=== PATIENT | male | born 1940 | race Caucasian/White ===

== ENCOUNTER → 2017-01-16 | Outpatient (CLI) | payer MEDICARE, BC | END | disposition home or self-care (01) | LOC: PCVCIMAG 08:48 | PROVIDERS: ATTEND Internal Medicine Cardiovascular Disease | DX: I65.23 Occlusion and stenosis of bilateral carotid arteries (principal); E78.5 Hyperlipidemia, unspecified; I10 Essential (primary) hypertension | CPT/HCPCS: 93005; 93880; G0463 ==

== ENCOUNTER → 2017-07-19 | Outpatient (CLI) | payer MEDICARE, BC ==
--- NOTE | 2017-07-19 17:15 | PCVCIMAG ---
APPROVED REPORT Exam: Stress Echocardiogram Indication: CAD , Hypertension, PAD, Hyperlipidemia Patient Location: Echo lab Stress Nurse: Angelina Deutsch RN Room #: 2 Ht: 5 ft 9 in HR: 61 bpm BP: 114/80 mmHg Rhythm: NSR Medical History Medical History: CAD non obstructive, PAD Cardiac Risk Factors: HTN, Hyperlipidemia Pretest Chest Pain Characteristics: none Exercise History: Physically active Procedure The patient underwent an Exercise Stress Test using the Ubaldo Protocol. Blood pressure, heart rate, and EKG were monitored. An Echocardiogram was performed by highway engineering technician in four stages in quad fashion. At peak stress, four selected images were obtained and placed side by side with resting images for comparison. Stress Test Details Stress Test: Exercise stress testing was performed using a Ubaldo protocol. HR Resting HR: 61 bpmMax Heart Rate (APMHR): 142 bpm Max HR Achieved: 137 bpmTarget HR (85% APMHR): 120 bpm % of APMHR: 96 Recovery HR: 76 bpm HR response to stress: Normal HR response to stress BP Resting BP: 114/80 mmHg Max BP: 156/78 mmHg Recovery BP: 120/78 mmHg ECG Resting ECG: Sinus Bradycardia Stress ECG: Sinus Rhythm ST Change: Non-ischemic Arrhythmia: Occasional PVCs Recovery ECG: Sinus Rhythm Recovery ST Change: Non-ischemic Recovery Arrhythmia: occasional PVCs Clinical Reason for Termination: Maximal effort Stress Symptoms: none Exercise duration: 7 min 17 sec Highest Stage Achieved: Stage 3: 3.4 mph at 14% grade. Exercise capacity: 10.1 METs Overall Exercise Capacity for Age: Average Angina Score: None Stress ECG Conclusion The patient exercised according to the Ubaldo Protocol for7:17 minutes, achieving a maximum work level of 10.1 METS. The resting heart rate of 61 bpm, toy to a maximal level of 137 bpm. This value represents 96% of the maximal, age-predicted heart rate. The resting blood pressure of 114/80 mmHg, toy to a maximum blood pressure of 156/78 mmHg. The exercise was stopped due to fatigue. Pre-Stress Echo The resting Echocardiogram showed normal left ventricular contractility with an estimated Ejection Fraction of about >55%. Normal wall motion in all segments on baseline images. Post-Stress Echo The stress Echocardiogram showed normal left ventricular contractility with an estimated Ejection Fraction of about 65-70%. Normal augmentation of wall motion in all segments on post stress images. Clinical No clinical or ECG evidence for ischemia. Conclusion Clinical Response: Non-ischemic Exercise Capacity: Average Stress ECG Response: Non-ischemic Stress Echo Images: Non-ischemic
== END | disposition home or self-care (01) ==
LOC: PCVCIMAG 13:32
PROVIDERS: ATTEND Internal Medicine Cardiovascular Disease
DX: I25.10 Atherosclerotic heart disease of native coronary artery without angina pectoris (principal); I10 Essential (primary) hypertension; E78.5 Hyperlipidemia, unspecified; I73.9 Peripheral vascular disease, unspecified
CPT/HCPCS: 93325; 93351

== ENCOUNTER → 2018-01-17 | Outpatient (CLI) | payer MEDICARE, BC | END | disposition home or self-care (01) | LOC: PCVCIMAG 10:04 | DX: I73.9 Peripheral vascular disease, unspecified (principal); I25.10 Atherosclerotic heart disease of native coronary artery without angina pectoris; I65.23 Occlusion and stenosis of bilateral carotid arteries; I70.1 Atherosclerosis of renal artery; R94.31 Abnormal electrocardiogram [ECG] [EKG]; Z87.891 Personal history of nicotine dependence; Z79.899 Other long term (current) drug therapy; Z79.82 Long term (current) use of aspirin | CPT/HCPCS: 80061; 93005; 93880; 93931; G0463 ==

== ENCOUNTER → 2018-09-24 | Outpatient (CLI) | payer MEDICARE, BC | END | disposition home or self-care (01) | LOC: PCVCCLINIC 13:30 | PROVIDERS: ATTEND Internal Medicine Cardiovascular Disease | DX: I25.10 Atherosclerotic heart disease of native coronary artery without angina pectoris (principal); R94.31 Abnormal electrocardiogram [ECG] [EKG]; I65.29 Occlusion and stenosis of unspecified carotid artery; I77.1 Stricture of artery; I70.1 Atherosclerosis of renal artery; I73.9 Peripheral vascular disease, unspecified; I10 Essential (primary) hypertension; E78.00 Pure hypercholesterolemia, unspecified; R00.1 Bradycardia, unspecified; F17.210 Nicotine dependence, cigarettes, uncomplicated; M10.9 Gout, unspecified; Z98.890 Other specified postprocedural states; Z91.048 Other nonmedicinal substance allergy status; Z72.89 Other problems related to lifestyle; Z79.82 Long term (current) use of aspirin | CPT/HCPCS: 36415; 80061; 93005; G0463 ==

== ENCOUNTER → 2019-03-24 | Outpatient (CLI) | payer MEDICARE, BC ==
--- NOTE | 2019-03-24 11:54 | PCVCIMAG ---
APPROVED REPORT Study performed: 03/24/2019 10:33:02 Exam: Stress Echocardiogram Indication: CAD , Hypertension, Hyperlipidemia Stress Nurse: Elizabeth Tan RN Ht: 5 ft 9 in HR: 59 bpm BP: 134/85 mmHg Rhythm: NSR Procedure The patient underwent an Exercise Stress Test using the Ubaldo Protocol. Blood pressure, heart rate, and EKG were monitored. An Echocardiogram was performed by case technician in four stages in quad fashion. At peak stress, four selected images were obtained and placed side by side with resting images for comparison. Stress Test Details Stress Test: Exercise stress testing was performed using a Ubaldo protocol. HR Resting HR: 59 bpmMax Heart Rate (APMHR): 140 bpm Max HR Achieved: 144 bpmTarget HR (85% APMHR): 119 bpm % of APMHR: 102 Recovery HR: 74 bpm HR response to stress: Normal HR response to stress BP Resting BP: 134/85 mmHg Max BP: 152/85 mmHg Recovery BP: 120/74 mmHg BP response to stress: Normal blood pressure response to stress. ECG Resting ECG: Sinus Rhythm Stress ECG: Sinus Rhythm Recovery ECG: Clear Clinical Reason for Termination: Maximal effort Exercise duration: 6 min 30 sec Highest Stage Achieved: Stage 3: 3.4 mph at 14% grade. Exercise capacity: 8.40 METs Overall Exercise Capacity for Age: Good Pre-Stress Echo The resting Echocardiogram showed nornormal left ventricular contractility with an estimated Ejection Fraction of about 55-60%. Post-Stress Echo The stress Echocardiogram showed normal left ventricular contractility with an estimated Ejection Fraction of about 60-65%. Conclusion Clinical Response: Non-ischemic Exercise Capacity: Superior Stress ECG Response: Non-ischemic Stress Echo Images: Non-ischemic Other Information Study Quality: Good
== END | disposition home or self-care (01) ==
LOC: PCVCIMAG 10:16
PROVIDERS: ATTEND Internal Medicine Cardiovascular Disease
DX: I25.10 Atherosclerotic heart disease of native coronary artery without angina pectoris (principal); I10 Essential (primary) hypertension; E78.5 Hyperlipidemia, unspecified
CPT/HCPCS: 93325; 93351

== ENCOUNTER → 2019-07-31 | Outpatient (CLI) | payer MEDICARE, BC ==
--- NOTE | 2019-07-31 10:12 | PCVCIMAG ---
APPROVED REPORT Laterality: Bilateral Indications Stenosis Doppler Spectral Velocity Analysis PSV / EDVPSV / EDV ECA (R) 93 / 12 cm/sECA (L) 67 / 7 cm/s dICA (R) 54 / 21 cm/sdICA (L) 89 / 24 cm/s Surinder (R) 62 / 26 cm/smICA (L) 82 / 27 cm/s pICA (R) 54 / 18 cm/spICA (L) 53 / 8 cm/s Bulb (R) 43 / 10 cm/sBulb (L) 34 / 7 cm/s dCCA (R) 59 / 5 cm/sdCCA (L) 76 / 17 cm/s mCCA (R) 76 / 13 cm/smCCA (L) 88 / 18 cm/s Vert (R) 31 / 6 cm/sVert (L) 39 / 13 cm/s ICA/CCA 1.05ICA/CCA 1.17 Findings The right carotid bulb has mild plaque. The right proximal internal carotid artery shows no significant stenosis. The right common carotid artery shows no significant stenosis. The right external carotid artery shows no significant stenosis. The left carotid bulb has mild plaque. The left proximal internal carotid artery shows no significant stenosis. The left common carotid artery shows no significant stenosis. The left external carotid artery shows no significant stenosis. Conclusion 1. Mild bilateral plaquing without significant stenosis. Changes consistent with bilateral carotid endarterectomies. 2. Antegrade vertebral flow.
--- NOTE | 2019-07-31 10:38 | PCVCIMAG ---
EXAM: ARTERIAL DUPLEX right upper extremity INDICATION: Right arm pain. FINDINGS: Right arm: Satisfactory arterial waveforms in the innominate artery, subclavian artery, axillary artery, brachial artery, and radial arteries. No evidence of flow-limiting stenosis. No severe right subclavian stenosis identified. Systolic pressure right arm 136 mmHg and left arm 136 mmHg. IMPRESSION: No flow-limiting arterial stenosis seen in the right upper extremity. Systolic pressures equal in the right and left arms. LOC:[id number]
== END | disposition home or self-care (01) ==
LOC: PCVCIMAG 09:50
PROVIDERS: ATTEND Internal Medicine Cardiovascular Disease
DX: I65.23 Occlusion and stenosis of bilateral carotid arteries (principal); I73.9 Peripheral vascular disease, unspecified; E78.00 Pure hypercholesterolemia, unspecified; R94.31 Abnormal electrocardiogram [ECG] [EKG]; M10.9 Gout, unspecified; I25.10 Atherosclerotic heart disease of native coronary artery without angina pectoris; I10 Essential (primary) hypertension; Z90.49 Acquired absence of other specified parts of digestive tract; Z98.890 Other specified postprocedural states; Z87.891 Personal history of nicotine dependence; Z72.89 Other problems related to lifestyle; Z91.048 Other nonmedicinal substance allergy status; Z79.82 Long term (current) use of aspirin
CPT/HCPCS: 93880; 93931